=== PATIENT | male | born 1960 | race African-American/Black ===

== ENCOUNTER 2016-11-08 20:26 | Emergency (ER) | payer MEDICAID, OTHER ==
[~2016-11-08] VITALS: Ht 177.8 cm; Wt 75.0 kg
[~2016-11-08 20:26] MED LIST: LISI-586 PO; METO25 PO; RISP3TAB23 PO; SERT-132 PO; TRAZ100 PO; ZOLO20CO PO
[2016-11-08 20:38] VITALS: BP 101/62; PULSE 86; RESP 16; TEMP 98.1; O2SAT 96
[2016-11-08] MEDS ORDERED: SODIUM CHLOR 0.9% 1000 ML INJ 1,000 ML IV ONE (20:39)
[2016-11-08 20:44] VITALS: BP 104/58; PULSE 88; RESP 16; O2SAT 98
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
[2016-11-08 21:01] LABS: AUTOMATED NEUTROPHIL # 1.8 TH/MM3 (1.8-7.7); BASOPHIL % 0.5 % (0.0-2.0); BLOOD, URINE NEG (NEG); EOSINOPHIL # 0.1 TH/MM3 (0-0.4); EOSINOPHIL % 1.4 % (0.0-4.0); GLUCOSE,URINE NEG (NEG); HEMATOCRIT 38.4 % (39.0-51.0); KETONE, URINE NEG (NEG); LYMPH % 61.6 % (9.0-44.0); LYMPHOCYTE # 3.5 TH/MM3 (1.0-4.8); MEAN CELL VOLUME 94.7 FL (80.0-100.0); MEAN CORPUSCULAR HEMOGLOBIN 33.9 PG (27.0-34.0); MEAN CORPUSCULAR HGB CONC 35.8 % (32.0-36.0); MONO % 4.3 % (0.0-8.0); NEUT % 32.2 % (16.0-70.0); NITRITE,URINE NEG (NEG); PLATELET COUNT 179 TH/MM3 (150-450); RED BLOOD COUNT 4.05 MIL/MM3 (4.50-5.90); RED CELL DISTRIBUTION WIDTH 13.9 % (11.6-17.2); URINE COLOR LIGHT-YELLOW (YELLW/STRAW); WHITE BLOOD COUNT 5.7 TH/MM3 (4.0-11.0)
[2016-11-08 21:03] LABS: COMMENT (UR) CULT NOT INDICATED; CULTURE IF INDICATED CULT NOT INDICATED
[2016-11-08 21:09] LABS: HEMO FLAGS AUTO DIFF
[2016-11-08 21:27] LABS: ANION GAP 8 MEQ/L (5-15)
[2016-11-08 21:36] LABS: ALKALINE PHOSPHATASE 77 U/L (45-117); ALT (GPT) 22 U/L (12-78); AST (GOT) 15 U/L (15-37); BLOOD UREA NITROGEN 11 MG/DL (7-18); CHLORIDE 105 MEQ/L (98-107); GLOMERULAR FILTRATION RATE 72 ML/MIN (>89); POTASSIUM 3.6 MEQ/L (3.5-5.1); SODIUM (NA) 138 MEQ/L (136-145); TOTAL BILIRUBIN ADULT 0.2 MG/DL (0.2-1.0)
[2016-11-08 21:38] LABS: ACETAMINOPHEN LESS THAN 2.0 MCG/ML (10.0-30.0); ALCOHOL 276 MG/DL (0-5)
[2016-11-08 21:44] LABS: PLATELET ESTIMATE SMEAR NORMAL (NORMAL); PLATELET MORPHOLOGY ENLARGED (NORMAL); SCAN/DIFF AUTO DIFF CONFIRMED
--- NOTE | 2016-11-09 16:24 | EKG ---
Date Performed: 11/08/2016 Time Performed: 20:45:05 PTAGE: 56 years EKG: Sinus rhythm WITHIN NORMAL LIMITS Compared to prior tracing no significant change BORDERLINE ECG PREVIOUS TRACING : 08/11/2014 12.25 DOCTOR: Mj Strange Interpretating Date/Time 11/09/2016 16:22:50
== END 2016-11-09 06:29 | disposition home or self-care (01) ==
LOC: NEPD 20:26
DX: F10.129 Alcohol abuse with intoxication, unspecified (principal); F17.200 Nicotine dependence, unspecified, uncomplicated; I10 Essential (primary) hypertension; Y90.8 Blood alcohol level of 240 mg/100 ml or more
CPT/HCPCS: 80053; 80307; 81001; 85025; 93005; 96360; 99284; J7030

== ENCOUNTER 2016-12-12 21:25 | Emergency (ER) | payer MEDICAID, OTHER ==
[~2016-12-12] VITALS: Ht 172.7 cm; Wt 79.5 kg
[2016-12-12 21:27] VITALS: BP 147/96; PULSE 111; RESP 20; TEMP 97.7; O2SAT 95
[2016-12-12] MEDS ORDERED: DICL75TA PO (22:19)
[2016-12-12] MEDS ORDERED: ROBA500T PO (22:19)
--- NOTE | 2016-12-12 22:25 | PD ---
HPI Chief Complaint: Back/ Neck Pain or Injury Time Seen by Provider: 22:23 Travel History International Travel<30 days: No Contact w/Intl Traveler<30days: No Traveled to known affect area: No History of Present Illness HPI 56-year-old black male presents to emergency Department with complaints of acute exacerbation of his chronic back pain. He states that he has been taking Ultram by his primary care doctor which has not been helping. He has requested Percocet. He also states that the pain is moderate. With worsening bending and movement. He has had some tingling and decreased sensation to his anterior thighs. This is been chronic in nature. He has not had any significant changes in his symptomatology. He denies any acute bowel or bladder changes. PFSH Past Medical History Arthritis: Yes Blood Disorders: No Depression: Yes Cancer: No Cardiovascular Problems: Yes (HTN) High Cholesterol: Yes COPD: Yes Cerebrovascular Accident: Yes (x1) Diabetes: No Diminished Hearing: No Endocrine: No Gastrointestinal Disorders: No Genitourinary: No Hypertension: Yes Immune Disorder: No Implanted Vascular Access Dvce: No Musculoskeletal: Yes (ANKLES WITH PLATES) Neurologic: Yes (TIA) Psychiatric: Yes Reproductive: No Respiratory: Yes (COPD) Immunizations Current: Yes Tetanus Vaccination: Unknown Influenza Vaccination: Yes Past Surgical History Other Surgery: Yes (UNKNOWN) Social History Alcohol Use: Yes (DRINKS BEER COUPLE TIMES WEEK) Tobacco Use: Yes (1 ppd) Substance Use: Yes (crack cocaine) Allergies-Medications (Allergen,Severity, Reaction): Coded Allergies: aspirin (Unverified Adverse Reaction, Mild, GI UPSET, 12/12/16) Reported Meds & Prescriptions Reported Meds & Active Scripts Active Robaxin (Methocarbamol) 500 Mg Tab 500 Mg PO QID Diclofenac Sodium DR (Diclofenac Sodium) 75 Mg Tabdr 75 Mg PO BID Review of Systems Except as stated in HPI: all other systems reviewed are Neg Physical Exam Narrative GENERAL: Well-developed, well-nourished in no apparent distress. Nontoxic appearing. HEAD: Normocephalic, atraumatic. EYES: Pupils equal round and reactive. Extraocular motions intact. No scleral icterus. No injection or drainage. ENT: Nose clear. Throat without erythema, tonsillar hypertrophy or exudate. Uvula midline. Airway patent. NECK: Trachea midline. Supple, nontender, moves head freely. No central bony tenderness or spasm. CARDIOVASCULAR: Regular rate and rhythm without murmurs, gallops, or rubs. RESPIRATORY: Clear to auscultation. Breath sounds equal bilaterally. No wheezes , rales, or rhonchi. GASTROINTESTINAL: Abdomen soft, non-tender, nondistended. No hepato-splenomegaly , or palpable masses. No guarding. EXTREMITIES: No clubbing, cyanosis, or edema. No joint tenderness. BACK: No central bony tenderness to palpation of dorsal lumbar spine. Patient complains of diffuse paralumbar tenderness. He has decreased for flexion to 70 . Able to heel and toe stand. No saddle anesthesia. Without deformity. No flank tenderness. NEUROLOGICAL: Awake, alert and oriented x 3 .Cranial nerves grossly intact. Motor and sensory grossly within normal limits. Normal speech. Data Data Last Documented VS Vital Signs Date Time Temp Pulse Resp B/P (MAP) Pulse Ox O2 Delivery O2 Flow Rate FiO2 12/12/16 21:27 97.7 111 20 147/96 (113) 95 Room Air Orders Orders Ketorolac Inj (Toradol Inj) (12/12/16 22:30) Orphenadrine Inj (Norflex Inj) (12/12/16 22:30) MDM Medical Decision Making Medical Screen Exam Complete: Yes Emergency Medical Condition: Yes Medical Record Reviewed: Yes Differential Diagnosis MDM: High Differential diagnoses: AAA,Fracture, sprain, strain, HNP, nerve or vascular injury, epidural abscess, pilonidal cyst, pyelonephritis, UTI, nephrolithiasis, ureterolithiasis Narrative Course Patient's given Toradol 60 mg and Norflex 60 mg IM. This acute exacerbation of chronic back pain Diagnosis Primary Impression: Acute exacerbation of chronic low back pain Patient Instructions: General Instructions Additional Instructions: Rest. Ice for the next 3 days followed by heat . Robaxin and Voltaren. Follow-up with a primary care doctor in one week. Return to the ER for emergencies. Med/Other Pt SpecificInfo: Prescription(s) given Scripts Methocarbamol (Robaxin) 500 Mg Tab 500 MG PO QID for Muscle Spasm, #30 TAB 0 Refills Prov: Tamela Day DO 12/12/[address] (Diclofenac Sodium DR) 75 Mg Tabdr 75 MG PO BID, #20 TAB 0 Refills Prov: Tamela Day DO 12/12/16 Disposition: 01 DISCHARGE HOME Condition: Stable Benson Rowe Dec 12, 2016 22:25
[2016-12-12] MEDS ORDERED: KETOROLAC TROMETHAMINE 60 MG/2 ML (IM) VIAL IM ONE (22:30)
[2016-12-12] MEDS ORDERED: ORPHENADRINE INJ 60 MG/2 ML AMP IM ONE (22:30)
== END 2016-12-12 22:43 | disposition home or self-care (01) ==
LOC: EDTENT 21:25
DX: M54.5 Low back pain (principal); G89.29 Other chronic pain
CPT/HCPCS: 96372; 99284; J1885; J2360

== ENCOUNTER 2016-12-24 20:57 | Emergency (ER) | payer MEDICAID ==
[~2016-12-24] VITALS: Ht 172.7 cm; Wt 80.0 kg
[~2016-12-24 20:57] MED LIST changes: +DICL75TA PO; -LISI-586 PO; -METO25 PO; -RISP3TAB23 PO; +ROBA500T PO; -SERT-132 PO; -TRAZ100 PO; -ZOLO20CO PO
[2016-12-24 21:16] VITALS: BP 153/104; PULSE 91; RESP 20; TEMP 98.4; O2SAT 95
[2016-12-24 21:26] VITALS: BP 153/104; PULSE 91; RESP 20; TEMP 98.4; O2SAT 95
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
[2016-12-24] MEDS ORDERED: traMADol HCL 50 MG TAB PO ONE (21:45)
[2016-12-24 22:11] LABS: AUTOMATED NEUTROPHIL # 1.4 TH/MM3 (1.8-7.7); BASOPHIL % 0.7 % (0.0-2.0); EOSINOPHIL % 0.2 % (0.0-4.0); HEMATOCRIT 38.6 % (39.0-51.0); HEMO FLAGS DIFF FINAL; LYMPH % 62.2 % (9.0-44.0); LYMPHOCYTE # 2.8 TH/MM3 (1.0-4.8); MEAN CELL VOLUME 95.4 FL (80.0-100.0); MEAN CORPUSCULAR HEMOGLOBIN 32.5 PG (27.0-34.0); MEAN CORPUSCULAR HGB CONC 34.1 % (32.0-36.0); MONO % 6.3 % (0.0-8.0); NEUT % 30.6 % (16.0-70.0); PLATELET COUNT 221 TH/MM3 (150-450); RED BLOOD COUNT 4.04 MIL/MM3 (4.50-5.90); RED CELL DISTRIBUTION WIDTH 13.8 % (11.6-17.2); WHITE BLOOD COUNT 4.4 TH/MM3 (4.0-11.0)
[2016-12-24 22:13] VITALS: BP 146/102; PULSE 75; RESP 18; O2SAT 95
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
--- NOTE | 2016-12-24 22:20 | RADRPT ---
EXAM DATE/TIME: 12/24/2016 22:03 [facility] COMPARISON: No previous studies available for comparison. INDICATIONS : Trauma. Patient fell tonight. MEDICAL HISTORY : Unobtainable. SURGICAL HISTORY : Unobtainable. ENCOUNTER: Initial ACUITY: 1 day PAIN SCORE: Non-responsive. LOCATION: Pelvis. FINDINGS: Single AP view of the pelvis demonstrates no fracture or dislocation. Mineralization is within normal limits. There is no significant arthropathy. No soft tissue abnormality or radiopaque foreign body i s identified. CONCLUSION: No acute abnormality is identified. Bayron Arriaza MD on December 24, 2016 at 22:18 Board Certified Radiologist. This report was verified electronically.
--- NOTE | 2016-12-24 22:29 | RADRPT ---
EXAM DATE/TIME: 12/24/2016 21:54 [facility] COMPARISON: No previous studies available for comparison. INDICATIONS : Trauma. Fall. ETOH RADIATION DOSE: 35.78 CTDIvol (mGy) MEDICAL HISTORY : Cardiovascular disease. Hypertension. Chronic obstructive pulmonary disease. SURGICAL HISTORY : None. ENCOUNTER: Initial ACUITY: 1 day PAIN SCALE: 0/10 LOCATION: cranial TECHNIQUE: Multiple contiguous axial images were obtained of the head. Using automated exposure control and adj ustment of the mA and/or kV according to patient size, radiation dose was kept as low as reasonably a chievable to obtain optimal diagnostic quality images. DICOM format image data is available electro nically for review and comparison. FINDINGS: CEREBRUM: There is mild cerebral atrophy. Ventricles are normal. No evidence of midline shift, mass lesion, he morrhage or acute infarction. No extra-axial fluid collections are seen. POSTERIOR FOSSA: The cerebellum and brainstem are intact. The 4th ventricle is midline. The cerebellopontine angle i s unremarkable. EXTRACRANIAL: Visualized sinuses are clear. SKULL: The calvaria is intact. No evidence of skull fracture. CONCLUSION: No acute intracranial abnormality is identified. Bayron Arriaza MD on December 24, 2016 at 22:26 Board Certified Radiologist. This report was verified electronically.
--- NOTE | 2016-12-24 22:35 | RADRPT ---
EXAM DATE/TIME: 12/24/2016 21:54 [facility] COMPARISON: No previous studies available for comparison. INDICATIONS : Trauma. Fall. ETOH RADIATION DOSE: 21.50 CTDIvol (mGy) MEDICAL HISTORY : Cardiovascular disease. Hypertension. Chronic obstructive pulmonary disease. SURGICAL HISTORY : None. ENCOUNTER: Initial ACUITY: 1 day PAIN SCALE: 0/10 LOCATION: neck TECHNIQUE: Volumetric scanning of the cervical spine was performed. Multiplanar reconstructions in the sagittal, coronal and oblique axial planes were performed. Using automated exposure control and adjustment o f the mA and/or kV according to patient size, radiation dose was kept as low as reasonably achievable to obtain optimal diagnostic quality images. DICOM format image data is available electronically f or review and comparison. FINDINGS: There is normal sagittal spine alignment of the cervical spine. No anterolisthesis or retrolisthesis is present. Accentuated lordosis is present at C4-C5. The atlantoaxial relationship is within normal limits. There is no prevertebral soft tissue swelling present. No acute fracture or dislocation is id entified. There is an ossific density on the last adjacent to the lamina at C5. It measures approxima tely 10 mm and narrows the spinal canal at least to a mild degree. There is degenerative disc disease at C4-C5 and C7-T1. The visualized portions of the posterior fossa, paraspinous soft tissues, and upper lung zones demons trate no acute abnormality. CONCLUSION: 1. No acute cervical spine abnormality is identified. 2. However, there is abnormal ossific density in the left spinal canal at the C5-C6 level that abuts the left C5 lamina. Etiology is uncertain. It could represent change from old trauma. It does not hav e a typical appearance for a calcified meningioma. However, it at least mildly narrows the spinal can al. 3. There is severe disc disease at C4-C5 and C7-T1. Bayron Arriaza MD on December 24, 2016 at 22:28 Board Certified Radiologist. This report was verified electronically.
--- NOTE | 2016-12-24 22:38 | RADRPT ---
EXAM DATE/TIME: 12/24/2016 21:58 [facility] COMPARISON: No previous studies available for comparison. INDICATIONS : Trauma. Fall. ETOH RADIATION DOSE: 35.86 CTDIvol (mGy) ; Combined studies - Thoracic Spine/Lumbar Spine MEDICAL HISTORY : Cardiovascular disease. Hypertension. Chronic obstructive pulmonary disease. SURGICAL HISTORY : None. ENCOUNTER: Initial ACUITY: 1 day PAIN SCALE: 0/10 LOCATION: thoracic TECHNIQUE: Volumetric scanning of the thoracic spine was performed. Multiplanar reconstructions in the sagittal , coronal and oblique axial planes were performed. Using automated exposure control and adjustment o f the mA and/or kV according to patient size, radiation dose was kept as low as reasonably achievable to obtain optimal diagnostic quality images. DICOM format image data is available electronically f or review and comparison. FINDINGS: There is normal sagittal spinal alignment. No fracture or compression deformity is present. No nohemy listhesis or retrolisthesis is visualized. There is no canal stenosis. 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 CONCLUSION: 1. No acute thoracic spine abnormality is identified. 2. 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 Bayron Arriaza MD on December 24, 2016 at 22:33 Board Certified Radiologist. This report was verified electronically.
--- NOTE | 2016-12-24 22:42 | RADRPT ---
EXAM DATE/TIME: 12/24/2016 21:58 [facility] COMPARISON: No previous studies available for comparison. INDICATIONS : Trauma. Fall. ETOH RADIATION DOSE: 35.86 CTDIvol (mGy) ; Combined studies - Thoracic Spine/Lumbar Spine MEDICAL HISTORY : Cardiovascular disease. Hypertension. Chronic obstructive pulmonary disease. SURGICAL HISTORY : None. ENCOUNTER: Initial ACUITY: 1 day PAIN SCALE: 0/10 LOCATION: lumbar TECHNIQUE: Volumetric scanning of the lumbar spine was performed. Multiplanar reconstructions in the sagittal, coronal and oblique axial planes were performed. Using automated exposure control and adjustment of the mA and/or kV according to patient size, radiation dose was kept as low as reasonably achievable t o obtain optimal diagnostic quality images. DICOM format image data is available electronically for review and comparison. FINDINGS: VERTEBRAE: Normal vertebral body height. No fracture is visualized. ALIGNMENT: No anterolisthesis or retrolisthesis. T12-L1: No disc herniation, canal stenosis, or neural foraminal stenosis. L1-L2: No disc herniation, canal stenosis, or neural foraminal stenosis. L2-L3: There is mild decreased disc height with a mild diffuse disc bulge. No canal stenosis or neural ema inal narrowing is visualized. L3-L4: There is a mild diffuse disc bulge. No canal stenosis or neural foraminal stenosis. L4-L5: Mild decreased disc height with vacuum disc. Moderate size diffuse disc bulge is present. There is no canal stenosis. There is mild neural foraminal narrowing bilaterally. L5-S1: Decreased disc height with vacuum disc and a diffuse disc bulge. No spinal canal stenosis is present. There is moderate neural foraminal narrowing bilaterally. There is severe atherosclerotic disease with aneurysmal right common iliac artery measuring 19 mm. CONCLUSION: 1. No acute lumbar spine abnormality is identified. Degenerative changes are present, as above. 2. 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 Bayron Arriaza MD on December 24, 2016 at 22:37 Board Certified Radiologist. This report was verified electronically.
[2016-12-24 22:43] LABS: APTT (PATIENT) 30.9 SEC (24.3-30.1); BICARBONATE 25.1 MEQ/L (21.0-32.0); INTERNATIONAL NORMALIZED RATIO 0.9 RATIO; POTASSIUM 3.9 MEQ/L (3.5-5.1); PROTHROMBIN TIME - PATIENT 9.8 SEC (9.8-11.6)
[2016-12-25] MEDS ORDERED: CYCL5TAB PO (01:06)
[2016-12-25] MEDS ORDERED: EC-N500T PO (01:06)
[2016-12-25 02:36] VITALS: BP 115/86
== END 2016-12-25 02:38 | disposition home or self-care (01) ==
LOC: NEPC 20:57
DX: M54.5 Low back pain (principal); G89.29 Other chronic pain; M50.30 Other cervical disc degeneration, unspecified cervical region; M51.34 Other intervertebral disc degeneration, thoracic region; M51.36 Other intervertebral disc degeneration, lumbar region; F10.929 Alcohol use, unspecified with intoxication, unspecified; F17.210 Nicotine dependence, cigarettes, uncomplicated; I10 Essential (primary) hypertension; M19.90 Unspecified osteoarthritis, unspecified site; E78.00 Pure hypercholesterolemia, unspecified; J44.9 Chronic obstructive pulmonary disease, unspecified; W03.XXXA Other fall on same level due to collision with another person, initial encounter; Z86.73 Personal history of transient ischemic attack (TIA), and cerebral infarction without residual deficits; Z79.899 Other long term (current) drug therapy
CPT/HCPCS: 70450; 71010; 72125; 72128; 72131; 72170; 80048; 80307; 85025; 85610; 85730; 99285

== ENCOUNTER 2016-12-29 14:46 | Emergency (ER) | payer MEDICAID ==
[~2016-12-29] VITALS: Ht 177.8 cm; Wt 90.0 kg
[~2016-12-29 14:46] MED LIST changes: +CYCL5TAB PO; -DICL75TA PO; +EC-N500T PO
[2016-12-29 15:02] VITALS: BP 119/79; PULSE 72; RESP 15; TEMP 98.2; O2SAT 98
--- NOTE | 2016-12-29 15:06 | PD ---
Physical Exam Date Seen by Provider: Dec 29, 2016 Time Seen by Provider: 15:01 [facility] Supervised Visit with HOA: No Narrative Course 56-year-old male presents to the ED via EMS after being found lying on the ground at [place]. On presentation the patient complains of generalized pain. Patient was seen in the ED this week. He requests "pain shot" administered at previous visit. Vitals reviewed. Patient seen in triage, awaiting bed placement. Dianne Loo Dec 29, 2016 15:06
== END 2016-12-29 17:12 | disposition left against medical advice (07) ==
LOC: NED 14:46
DX: R52 Pain, unspecified (principal); Z53.21 Procedure and treatment not carried out due to patient leaving prior to being seen by health care provider
CPT/HCPCS: 99281

== ENCOUNTER 2017-05-17 00:16 | Emergency (ER) | payer MEDICAID, OTHER ==
[~2017-05-17 00:16] MED LIST changes: -EC-N500T PO; +NAPR-810 PO
[2017-05-17 02:28] VITALS: BP 133/78; PULSE 84; RESP 21; TEMP 98.3; O2SAT 96
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
== END 2017-05-17 06:39 | disposition home or self-care (01) ==
LOC: NEPD 00:16
DX: F10.129 Alcohol abuse with intoxication, unspecified (principal); F17.210 Nicotine dependence, cigarettes, uncomplicated; M19.90 Unspecified osteoarthritis, unspecified site; I10 Essential (primary) hypertension; J44.9 Chronic obstructive pulmonary disease, unspecified; E78.00 Pure hypercholesterolemia, unspecified; Z86.73 Personal history of transient ischemic attack (TIA), and cerebral infarction without residual deficits
CPT/HCPCS: 99282

== ENCOUNTER 2017-09-11 19:25 | Emergency (ER) | payer MEDICAID, OTHER ==
[2017-09-11 19:38] VITALS: BP 154/88; PULSE 118; RESP 18; TEMP 97.8; O2SAT 98
== END 2017-09-11 21:21 | disposition left against medical advice (07) ==
LOC: NED 19:25
DX: Z53.21 Procedure and treatment not carried out due to patient leaving prior to being seen by health care provider (principal)
CPT/HCPCS: 99281